=== PATIENT | male | born 1990 | race Caucasian/White ===

== ENCOUNTER 2017-11-19 23:48 | Emergency (ER) | payer OTHER ==
[~2017-11-19] VITALS: Ht 170.2 cm; Wt 63.6 kg
[2017-11-20 00:01] VITALS: BP 132/80
[2017-11-20 00:57] LABS: EOS # 0.1 (0.04-0.40); EOS % 0.8 % (0.0-4.0); HEMATOCRIT 43.7 % (42.0-52.0); HEMOGLOBIN 15.1 g/dL (13.5-18.0); LYMPH# 1.4 (1.50-4.00); MEAN CELL VOLUME 86 fl (78-100); MEAN CORPUSCULAR HEMOGLOBIN 30 pg (27-31); MEAN CORPUSCULAR HGB CONC 35 g/dL (33-37); MEAN PLATELET VOLUME 8.8 fl (7.4-10.4); MONO # 0.7 (0.20-0.80); NEU # 6.1 (1.40-6.50); PLATELET COUNT 315 K/mm3 (130-400); RED BLOOD COUNT 5.08 M/mm3 (4.20-5.60); RED CELL DISTRIBUTION WIDTH 13.6 % (11.5-14.5); WHITE BLOOD COUNT 8.4 K/mm3 (4.8-10.8)
[2017-11-20 01:02] LABS: ACETAMINOPHEN < 4 ug/mL (10-30); ALBUMIN 4.6 g/dL (3.5-5.0); ALCOHOL IN-HOUSE < 10 mg/dL; ALT/SGPT 28 U/L (21-72); AST-SGOT 25 U/L (17-59); BUN/CREATININE RATIO 13.9 (6.0-26.0); CALCIUM 8.9 mg/dL (8.4-10.2); CARBON DIOXIDE 27 mmol/L (22-30); GLUCOSE 91 mg/dL (75-110); POTASSIUM 3.8 mmol/L (3.6-5.0); SODIUM 139 mmol/L (137-145); TOTAL BILIRUBIN 1.9 mg/dL (0.2-1.3); TOTAL PROTEIN 7.9 g/dL (6.3-8.2)
== END 2017-11-20 03:58 | disposition home or self-care (01) ==
LOC: ED 23:48
PROVIDERS: Nurse Practitioner Primary Care
DX: Z63.8 Other specified problems related to primary support group (principal); F20.9 Schizophrenia, unspecified